=== PATIENT | male | born 1995 | race Caucasian/White ===

== ENCOUNTER 2017-12-24 22:17 | Emergency (ER) | payer OTHER ==
[2017-12-24] MEDS ORDERED: NA CHLORIDE 0.9% 1,000 ML ONE (23:28)
[2017-12-24] MEDS ORDERED: ONDANSETRON 4 MG/2 ML VIAL ONE (23:28)
[2017-12-24 23:35] LABS: Absolute Monocytes 1.1 K/uL (0.1-1.3); Absolute Neutrophil 7.2 K/uL (1.8-8.0); Basophils % 0.4 % (0-1.3); Eosinophils % 0.4 % (0-4.4); Hematocrit 49.1 % (39.6-49.0); Lymphocytes % 26.1 % (15.3-44.8); MCH 27.8 pg (27.0-35.0); MCV 82.8 fL (80-100); MPV 9.1 fL (7.6-11.3); Monocytes % 9.7 % (3.3-12.3); RBC Red Blood Cell Count 5.93 M/uL (4.33-5.43)
[2017-12-24 23:42] LABS: Potassium 3.6 mEq/L (3.6-5.0)
[2017-12-24 23:48] LABS: Albumin 4.9 g/dL (3.2-5.5); Bilirubin Direct 0.1 mg/dL (0-0.2); Protein, Total 7.8 g/dL (6.0-8.3)
[2017-12-25] MEDS ORDERED: PROMETHAZINE 25 MG/ML VIAL ONE (00:05)
[2017-12-25] MEDS ORDERED: ONDANSETRON 4 MG/2 ML VIAL ONE (02:01)
--- NOTE | 2017-12-25 04:08 | EDPHYS ---
Physician Documentation [facility] Name: Scotty Rosas Age: 22 yrs Sex: Male : 1995 Arrival Date: 12/24/2017 Time: 22:22 Bed 30 Private MD: ED Physician [place] HPI: 12/24 23:02 This 22 yrs old Male presents to ER via Ambulatory with complaints of rn Vomiting. 23:02 The patient presents to the emergency department with nausea, vomiting, diarrhea, rn abdominal pain, of the umbilical area. Onset: The symptoms/episode began/occurred yesterday. Possible causes: unknown. The symptoms are aggravated by nothing. The symptoms are alleviated by nothing. Severity of symptoms: At their worst the symptoms were moderate in the emergency department the symptoms are unchanged. The patient has experienced a previous episode. The patient has not recently seen a physician. Historical: - Allergies: 22:34 No Known Allergies; ao - Home Meds: 22:34 None [Active]; ao - PMHx: 22:34 Heat stroke at 16 year age; mono at 19 years; ao - PSHx: 22:34 None; ao - Immunization history:: Adult Immunizations up to date. - Social history:: Smoking status: Patient/guardian denies using tobacco, Patient/guardian denies using alcohol, street drugs. - Family history:: not pertinent. - Hospitalizations: : No recent hospitalization is reported. ROS: 23:02 Constitutional: Negative for fever, chills, and weight loss, Eyes: Negative for injury, rn pain, redness, and discharge, Neck: Negative for injury, pain, and swelling, Cardiovascular: Negative for chest pain, palpitations, and edema, Respiratory: Negative for shortness of breath, cough, wheezing, and pleuritic chest pain, Abdomen/GI: Negative for constipation, Back: Negative for injury and pain, MS/Extremity: Negative for injury and deformity, Skin: Negative for injury, rash, and discoloration, Neuro: Negative for headache, numbness, tingling, and seizure. Exam: 23:02 Constitutional: This is a well developed, well nourished patient who is awake, alert, rn and in no acute distress. Head/Face: Normocephalic, atraumatic. Eyes: Pupils equal round and reactive to light, extra-ocular motions intact. Lids and lashes normal. Conjunctiva and sclera are non-icteric and not injected. Cornea within normal limits. Periorbital areas with no swelling, redness, or edema. Neck: Trachea midline, no thyromegaly or masses palpated, and no cervical lymphadenopathy. Supple, full range of motion without nuchal rigidity, or vertebral point tenderness. No Meningismus. Cardiovascular: Regular rate and rhythm with a normal S1 and S2. No gallops, murmurs, or rubs. Normal PMI, no JVD. No pulse deficits. Respiratory: Lungs have equal breath sounds bilaterally, clear to auscultation and percussion. No rales, rhonchi or wheezes noted. No increased work of breathing, no retractions or nasal flaring. Abdomen/GI: Soft, non-tender, with normal bowel sounds. No distension or tympany. No guarding or rebound. No evidence of tenderness throughout. Skin: Warm, dry with normal turgor. Normal color with no rashes, no lesions, and no evidence of cellulitis. MS/ Extremity: Pulses equal, no cyanosis. Neurovascular intact. Full, normal range of motion. Equal circumference. Neuro: Awake and alert, GCS 15, oriented to person, place, time, and situation. Cranial nerves II-XII grossly intact. Motor strength 5/5 in all extremities. Sensory grossly intact. Cerebellar exam normal. Normal gait. Vital Signs: 22:34 Pulse 63; Resp 14; Temp 97.4(A); Pulse Ox 97% on R/A; Weight 61.23 kg (R); Height 5 ft. ao 8 in. (172.72 cm); Pain 6/10; 23:38 BP 116 / 89; Pulse 52; kr2 04/04 00:48 BP 119 / 84; Pulse 76; Resp 15; Pulse Ox 99% on R/A; kr2 01:30 BP 126 / 94; Pulse 72; Resp 15; Pulse Ox 97% on R/A; lk1 03:06 BP 106 / 70; Pulse 52; Resp 16; Temp 98.3(O); Pulse Ox 99% on R/A; Pain 0/10; ao 04:10 BP 118 / 79; Pulse 52; Resp 14; Pulse Ox 100% ; Pain 0/10; lk1 05:28 BP 152 / 88; Pulse 58; Resp 14; Temp 98.1(O); Pulse Ox 100% ; Pain 0/10; ao 12/24 22:34 Body Mass Index 20.53 (61.23 kg, 172.72 cm) ao MDM: 12/24 22:46 Patient medically screened. rn 12/25 03:25 ED course: Pt sleeping comfortably. rn 04:06 Differential diagnosis: Nonspecific abd pain, appendicitis, diverticulitis, viral rn gastroenteritis, gastroenteritis. Data reviewed: vital signs, nurses notes, lab test result(s), radiologic studies, CT scan, and as a result, I will discharge patient. Counseling: I had a detailed discussion with the patient and/or guardian regarding: the historical points, exam findings, and any diagnostic results supporting the discharge/admit diagnosis, lab results, radiology results, the need for outpatient follow up, to return to the emergency department if symptoms worsen or persist or if there are any questions or concerns that arise at home. Response to treatment: the patient's symptoms have markedly improved after treatment, and as a result, I will discharge patient. Special discussion: I discussed with the patient/guardian in detail that at this point there is no indication for admission to the hospital. It is understood, however, that if the symptoms persist or worsen the patient needs to return immediately for re-evaluation. 12/24 22:51 Order name: Basic Metabolic Panel; Complete Time: 23:50 rn 12/24 22:51 Order name: CBC with Diff; Complete Time: 23:44 rn 12/24 22:51 Order name: Hepatic Function; Complete Time: 23:50 rn 12/24 22:51 Order name: Lipase; Complete Time: 23:50 rn 12/24 23:45 Order name: CT Abd/Pelvis - W/Contrast rn 12/24 22:51 Order name: IV Saline Lock; Complete Time: 23:17 rn 12/24 22:51 Order name: Labs collected and sent; Complete Time: 23:17 rn Administered Medications: 12/24 23:17 Drug: Zofran 4 mg Route: IVP; Site: right antecubital; kr2 23:49 Follow up: Response: No adverse reaction; Vomiting decreased kr2 23:17 Drug: NS 0.9% 1000 ml Route: IV; Rate: 1000 ml; Site: right antecubital; kr2 12/25 00:49 Follow up: Response: No adverse reaction; IV Status: Completed infusion kr2 12/24 23:49 Drug: Phenergan 25 mg Route: IVP; Site: right antecubital; kr2 12/25 00:47 Follow up: Response: No adverse reaction; Nausea is decreased; Vomiting decreased kr2 01:45 Drug: Zofran 4 mg Route: IVP; Site: right antecubital; lk1 02:00 Follow up: Response: No adverse reaction; Marked relief of symptoms; Vomiting decreased lk1 04:22 Drug: Cipro 400 mg Volume: 200 ml; Route: IVPB; Infused Over: 60 mins; Site: right lk1 antecubital; 05:31 Follow up: IV Status: Completed infusion ao 04:22 Drug: Flagyl 500 mg Volume: 100 ml; Route: IVPB; Rate: 200 ml/hr; Infused Over: 30 lk1 mins; Site: right antecubital; 05:31 Follow up: IV Status: Completed infusion ao Disposition: 12/25/17 04:07 Discharged to Home. Impression: Colitis, Vomiting, Diarrhea, unspecified. - Condition is Stable. - Discharge Instructions: Diarrhea, Nausea and Vomiting. - Prescriptions for Zofran ODT 4 mg Oral tablet,disintegrating - place 1 tablet by TRANSLINGUAL route every 8-10 hours As needed; 20 tablet. Cipro 500 mg Oral Tablet - take 1 tablet by ORAL route every 12 hours for 10 days; 20 tablet. Flagyl 500 mg Oral Tablet - take 1 tablet by ORAL route every 8 hours for 10 days; 30 tablet. - Medication Reconciliation Form, Thank You Letter, Antibiotic Education, Prescription Opioid Use, Work release form form. - Follow up: Private Physician; When: As needed; Reason: Recheck today's complaints, Re-evaluation by your physician. - Problem is new. - Symptoms have improved. Signatures: Dispatcher [employer] EDMS [place] Or[place] MD MD rn Kluge, Leah, RN RN lk1 Evangelist Elkins RN RN ao Reaves, Karey, JESSIE RN kr2 Corrections: (The following items were deleted from the chart) 12/24 23:36 22:52 Creatinine for Radiology+C.LAB.BRZ ordered. EDMS EDMS
--- NOTE | 2017-12-25 04:08 | ER ---
Nurse's Notes [facility] Name: Scotty Rosas Age: 22 yrs Sex: Male : 1995 Arrival Date: 12/24/2017 Time: 22:22 Bed 30 Private MD: Diagnosis: Colitis;Vomiting;Diarrhea, unspecified Presentation: 12/24 22:31 Presenting complaint: Patient states: "Yesterday after work I started with a headache ao and started vomiting with diarrhea. I think I'm dehydrated" Patient also C/O been weak and abdominal pain. Transition of care: patient was not received from another setting of care. Onset of symptoms was December 23, 2017 at 12:00. Care prior to arrival: None. 22:31 Method Of Arrival: Ambulatory ao 22:31 Acuity: JAVED 3 ao Triage Assessment: 22:35 General: Appears in no apparent distress. comfortable, Behavior is calm, cooperative, ao appropriate for age. Pain: Complains of pain in abdomen and headache. GI: Reports diarrhea, nausea, vomiting. Historical: - Allergies: 22:34 No Known Allergies; ao - Home Meds: 22:34 None [Active]; ao - PMHx: 22:34 Heat stroke at 16 year age; mono at 19 years; ao - PSHx: 22:34 None; ao - Immunization history:: Adult Immunizations up to date. - Social history:: Smoking status: Patient/guardian denies using tobacco, Patient/guardian denies using alcohol, street drugs. - Family history:: not pertinent. - Hospitalizations: : No recent hospitalization is reported. Screenin:21 Abuse screen: Denies threats or abuse. Nutritional screening: No deficits noted. kr2 Tuberculosis screening: No symptoms or risk factors identified. Fall Risk None identified. Assessment: 23:00 General: Appears in no apparent distress. slender, well groomed, well developed, well kr2 nourished, Behavior is calm, cooperative, appropriate for age. Pain: Complains of pain in umbilical area Pain currently is 5 out of 10 on a pain scale. Quality of pain is described as sharp, tender, Pain began suddenly, Is continuous. Neuro: Level of Consciousness is awake, alert, obeys commands, Oriented to person, place, time, situation, Appropriate for age. Cardiovascular: Capillary refill < 3 seconds in bilateral fingers Patient's skin is warm and dry. Respiratory: Airway is patent Respiratory effort is even, unlabored, Respiratory pattern is regular, symmetrical. GI: Abdomen is flat, non-distended, Pt is actively vomiting bile, Bowel sounds present X 4 quads. Abd is soft X 4 quads Abdomen is tender to palpation in umbilical area Reports nausea, vomiting, since yesterday. : No signs and/or symptoms were reported regarding the genitourinary system. Denies burning with urination. EENT: Oral mucosa is moist. Derm: Skin is intact, is healthy with good turgor, Skin is clammy, Skin is pale, Skin temperature is warm. Musculoskeletal: Circulation, motion, and sensation intact. 23:50 Reassessment: Patient appears in no apparent distress at this time. Patient and/or kr2 family updated on plan of care and expected duration. Pain level reassessed. Patient is alert, oriented x 3, equal unlabored respirations, skin warm/dry/pink. Patient complains of continued nausea, reported to Dr. Orta, new orders for Phenergan, administered med as ordered. 12/25 01:45 Reassessment: Patient and/or family updated on plan of care and expected duration. Pain lk1 level reassessed. Patient is alert, oriented x 3, equal unlabored respirations, skin warm/dry/pink. patient vomiting after drinking PO contrast. MD notified, new orders received. 03:08 General: Appears in no apparent distress. slender, well groomed, well developed, well ao nourished, Behavior is calm, cooperative, appropriate for age. Pain: Complains of pain in abdomen. Neuro: Level of Consciousness is awake, alert, obeys commands, Oriented to person, place, time, situation, Appropriate for age Moves all extremities. Speech is normal, Facial symmetry appears normal. Cardiovascular: Capillary refill < 3 seconds Patient's skin is warm and dry. Respiratory: Airway is patent Respiratory effort is even, unlabored, Respiratory pattern is regular, symmetrical. GI: Abdomen is flat, non-distended. GI: Reports nausea, vomiting. : No signs and/or symptoms were reported regarding the genitourinary system. : No signs and/or symptoms were reported regarding the genitourinary system. EENT: No signs and/or symptoms were reported regarding the EENT system. Derm: Skin is intact, Skin is pink, warm \\T\\ dry. Skin temperature is warm. Musculoskeletal: Circulation, motion, and sensation intact. Range of motion: intact in all extremities. 04:10 Reassessment: Patient appears in no apparent distress at this time. Patient and/or lk1 family updated on plan of care and expected duration. Pain level reassessed. Patient is alert, oriented x 3, equal unlabored respirations, skin warm/dry/pink. 04:22 Reassessment: Patient is up for discharge after Cipro and Flagyl is done. Estimated lk1 time is an hour. Patient updated in POC. 05:28 Reassessment: DC given to patient. patient understand the POC and to follow up with ao PCP. Patient has no questions at this time. Vital Signs: 12/24 22:34 Pulse 63; Resp 14; Temp 97.4(A); Pulse Ox 97% on R/A; Weight 61.23 kg (R); Height 5 ft. ao 8 in. (172.72 cm); Pain 6/10; 23:38 BP 116 / 89; Pulse 52; kr2 04/04 00:48 BP 119 / 84; Pulse 76; Resp 15; Pulse Ox 99% on R/A; kr2 01:30 BP 126 / 94; Pulse 72; Resp 15; Pulse Ox 97% on R/A; lk1 03:06 BP 106 / 70; Pulse 52; Resp 16; Temp 98.3(O); Pulse Ox 99% on R/A; Pain 0/10; ao 04:10 BP 118 / 79; Pulse 52; Resp 14; Pulse Ox 100% ; Pain 0/10; lk1 05:28 BP 152 / 88; Pulse 58; Resp 14; Temp 98.1(O); Pulse Ox 100% ; Pain 0/10; ao 12/24 22:34 Body Mass Index 20.53 (61.23 kg, 172.72 cm) ao ED Course: 12/24 22:22 Patient arrived in ED. al2 22:33 Triage completed. ao 22:35 Arm band placed on right wrist. Patient placed in an exam room, on a stretcher, on ao pulse oximetry. 22:46 Mt Orta MD is Attending Physician. rn 23:15 Inserted saline lock: 20 gauge in right antecubital area, using aseptic technique. kr2 Blood collected. 23:21 Patient has correct armband on for positive identification. Bed in low position. Call kr2 light in reach. Side rails up X 1. Pulse ox on. NIBP on. Door closed. Warm blanket given. Head of bed elevated. 23:27 Aileen Reveles RN is Primary Nurse. kr2 12/25 01:15 Oral contrast reported to be complete. 02:03 CT Abd/Pelvis - W/Contrast In Process Unspecified. EDMS 02:15 CT completed. Patient tolerated procedure well. Patient moved to CT via wheelchair. Patient moved back from CT. 03:10 Report received from JESSIE Delgado. ao 05:27 No provider procedures requiring assistance completed. IV discontinued, intact, ao bleeding controlled, No redness/swelling at site. Pressure dressing applied. Administered Medications: 12/24 23:17 Drug: Zofran 4 mg Route: IVP; Site: right antecubital; kr2 23:49 Follow up: Response: No adverse reaction; Vomiting decreased kr2 23:17 Drug: NS 0.9% 1000 ml Route: IV; Rate: 1000 ml; Site: right antecubital; kr2 12/25 00:49 Follow up: Response: No adverse reaction; IV Status: Completed infusion kr2 12/24 23:49 Drug: Phenergan 25 mg Route: IVP; Site: right antecubital; kr2 12/25 00:47 Follow up: Response: No adverse reaction; Nausea is decreased; Vomiting decreased kr2 01:45 Drug: Zofran 4 mg Route: IVP; Site: right antecubital; lk1 02:00 Follow up: Response: No adverse reaction; Marked relief of symptoms; Vomiting decreased lk1 04:22 Drug: Cipro 400 mg Volume: 200 ml; Route: IVPB; Infused Over: 60 mins; Site: right lk1 antecubital; 05:31 Follow up: IV Status: Completed infusion ao 04:22 Drug: Flagyl 500 mg Volume: 100 ml; Route: IVPB; Rate: 200 ml/hr; Infused Over: 30 lk1 mins; Site: right antecubital; 05:31 Follow up: IV Status: Completed infusion ao Outcome: 04:07 Discharge ordered by MD. rodrigues 05:28 Discharged to home ambulatory. ao 05:28 Condition: stable 05:28 Discharge instructions given to patient, Instructed on discharge instructions, follow up and referral plans. Demonstrated understanding of instructions, follow-up care, medications, Prescriptions given X 3. 05:30 Patient left the ED. ao Signatures: Dispatcher [employer] EDBenson Merida Roman, MD MD rn Sandy Piña RN RN lk1 Evangelist Elkins RN RN Aileen Ledezma RN RN kr2 Karina Miranda2 Corrections: (The following items were deleted from the chart) 12/24 22:44 22:31 Presenting complaint: Patient states: "Yesterday after work I started with a ao headache and started vomiting with diarrhea. I think I'm dehydrated" Patient also C/O been weak. ao 23:29 23:00 GI: Abdomen is flat, non-distended, Pt is actively vomiting bile, Bowel sounds kr2 present X 4 quads. Abd is soft X 4 quads Abdomen is tender to palpation in umbilical area Reports nausea, vomiting, since yesterday kr2 23:29 23:00 Derm: Skin is intact, is healthy with good turgor, Skin is pink, warm \\T\\ dry. kr2 kr2
[2017-12-25] MEDS ORDERED: METRONIDAZOLE 500mg IVPB 500 MG/100 ML BAG IV ONE (04:32)
[2017-12-25] MEDS ORDERED: CIPROFLOXACIN 400mg IV 400 MG/200 ML BAG IV ONE (04:32)
--- NOTE | 2017-12-25 08:56 | RAD REPORT ---
EXAM DESCRIPTION: CTAbdomen Pelvis W Contrast - 12/25/2017 3:53 am CLINICAL HISTORY: Abdominal pain. COMPARISON: None. TECHNIQUE: Biphasic CT imaging of the abdomen and pelvis was performed with 100 ml non-ionic IV cont rast. All CT scans are performed using dose optimization technique as appropriate and may include automated exposure control or mA/KV adjustment according to patient size. FINDINGS: The lung bases are clear. The liver, spleen, pancreas, adrenal glands are within normal limits. Trace perinephric fluid is seen about both kidneys. No hydronephrosis. No bowel obstruction, free air, free fluid or abscess. The appendix is normal. No evidence of signi ficant lymphadenopathy. No suspicious bony findings. IMPRESSION: Trace perinephric fluid is seen about both kidneys, questionable for early/mild pyelonep hritis. Correlation with clinical signs and symptoms and laboratory values would be suggested.
== END 2017-12-25 05:30 | disposition home or self-care (01) ==
LOC: ER 22:17
DX: K52.9 Noninfective gastroenteritis and colitis, unspecified (principal)
CPT/HCPCS: 36415; 74177; 80048; 80076; 83690; 85025; 96361; 96365; 96368; 96375; 99284; J0744; J2405; J2550; J7030; Q9967